=== PATIENT | male | born 1995 | race Caucasian/White ===

== ENCOUNTER 2018-09-11 14:22 | Emergency (ER) | payer OTHER ==
[~2018-09-11] VITALS: Ht 177.8 cm; Wt 107.1 kg
[2018-09-11 14:32] VITALS: BP 162/100; PULSE 110; RESP 18; Ht 177.8 cm; Wt 107.1 kg
[2018-09-11] MEDS ORDERED: LORA10TA3 PO (17:47)
[2018-09-11] MEDS ORDERED: FAMO-96 PO (17:47)
[2018-09-11] MEDS ORDERED: PRED20TA PO (17:47)
[2018-09-11] MEDS ORDERED: BEN25 PO (17:47)
[2018-09-11] MEDS ORDERED: DIPHENHYDRAMINE 25 MG CAP PO ONE (18:00)
--- NOTE | 2018-09-11 18:10 | ERD ---
ER Documentation Chief Complaint Chief Complaint allergic reaction, hives today HPI 23-year-old healthy male with no reported past medical surgical history who presents with complaint of hives since today. Patient states he noticed hives to bilateral upper and lower extremities worsened to bilateral upper extremities since last night. He denies prior history of similar allergic type reaction. Denies history of atopy. Denies using any new skin products, working outdoors or being exposed to any plants or animals, use of [id number] medications or prescription medications. States last night he had an episode of difficulty swallowing, but has had no other respiratory type symptoms since then denying shortness of breath, dyspnea, difficulty swallowing, change in voice. Hives to upper extremities and lower extremities have improved since that time but still quite prominent. At time examination patient is nontoxic-appearing speaking in full sentences with normal triage vital signs. ROS All systems reviewed and are negative except as per history of present illness. Medications Home Meds Active Scripts Famotidine* (Pepcid*) 20 Mg Tablet, 20 MG PO BID for 4 Days, TAB Prov:JEUDINE,BARBARAHO PA-C 09/11/18 Prednisone* (Prednisone*) 20 Mg Tab, 20 MG PO DAILY for 3 Days, TAB Prov:JEUDINE,GETHO PA-C 09/11/18 Loratadine* (Loratadine*) 10 Mg Tablet, 10 MG PO DAILY, #30 TAB Prov:JEUDINE,GETHO PA-C 09/11/18 Diphenhydramine Hcl* (Benadryl*) 25 Mg Cap, 25 MG PO Q6, #14 CAP Prov:JEUDINE,GETHO PA-C 09/11/18 Allergies Allergies: Coded Allergies: No Known Allergy (Unverified , 09/11/18) PMhx/Soc Medical and Surgical Hx: pt denies Medical Hx, pt denies Surgical Hx History of Surgery: No Anesthesia Reaction: No Hx Neurological Disorder: No Hx Respiratory Disorders: No Hx Cardiac Disorders: No Hx Psychiatric Problems: No Hx Miscellaneous Medical Probl: No Hx Alcohol Use: No Hx Substance Use: No Hx Tobacco Use: No Smoking Status: Never smoker FmHx Family History: No diabetes, No coronary disease, No other Physical Exam Vitals Vital Signs Date Temp Pulse Resp B/P (MAP) Pulse Ox O2 O2 Flow FiO2 Time Delivery Rate 09/11/18 97.8 110 18 162/100 97 14:32 (120) Physical Exam Const: No acute distress, speaking in full sentences Head: Atraumatic Eyes: Normal Conjunctiva ENT: Normal External Ears, Nose and Mouth. Neck: Full range of motion. No meningismus. Resp: Clear to auscultation bilaterally Cardio: Regular rate and rhythm, no murmurs Abd: Soft, non tender, non distended. Normal bowel sounds Skin: Upper extremities with prominent hives bilaterally, most prominent dorsal soft surface of her forearms, no rashes noted to palms or soles, bilateral extremities with hives less prominent than upper extremity Back: No midline or flank tenderness Ext: No cyanosis, or edema Neur: Awake and alert Psych: Normal Mood and Affect Results 24 hrs Current Medications Medications Dose Sig/Josette Start Time Status Last (Trade) Ordered Route PRN Stop Time Admin Dose Reason Admin 25 mg ONCE ONCE 09/11/18 DC Diphenhydrami PO 18:00 ne HCl 09/11/18 18:00 (Benadryl) Procedures/MDM 23-year-old healthy male presents with skin type allergic reaction. I have low suspicion for respiratory compromise given reassuring examination. Patient's symptoms could represent contact dermatitis and/or allergic reaction to unknown substance or exposure to unknown allergen. He is hemodynamically stable without any warning signs of airway or systemic compromise. Presentation not consistent with acute anaphylaxis (lack of pulmonary, dermatologic, cardiovascular or GI symptoms, lack of hypotension or exposure to known allergen), angioedema, serum sickness (no recent drug exposure, lacks fevers, arthralgias), ingestion of preformed toxin. No evidence of airway compromise or shock at this time. Patient's allergic symptoms have stabilized while they have been evaluated in the department without evidence of persistent systemic reaction. Patient is healthy and capable of treating and responding to rebound reactions. Patient appropriate for outpatient allergy work up and treatment. Will discharge with Benadryl, H2 sherie, short course of steroids. Strict return precautions explained in detail. DISPOSITION PLAN: We discussed follow up with the patient's primary care doctor within 24 to 48 hours. Patient counseled regarding my diagnostic impression and care plan. Prior to discharge all questions answered. Pt agrees with treatment plan and understands strict return precautions. Precautionary instructions provided including instructions to return to the ER if not improving or for any worsening or changing symptoms or concerns. Disclaimer: Inadvertent spelling and grammatical errors are likely due to EHR/dictation software use and do not reflect on the overall quality of patient care. Also, please note that the electronic time recorded on this note does not necessarily reflect the actual time of the patient encounter. Departure Diagnosis: Primary Impression: Allergic reaction Additional Impression: Contact dermatitis Condition: Stable Patient Instructions: First Aid: Allergic Reactions, Allergic Reaction, Other (General), Contact Dermatitis Referrals: [facility] YOU HAVE RECEIVED A MEDICAL SCREENING EXAM AND THE RESULTS INDICATE THAT YOU DO NOT HAVE A CONDITION THAT REQUIRES URGENT TREATMENT IN THE EMERGENCY DEPARTMENT. FURTHER EVALUATION AND TREATMENT OF YOUR CONDITION CAN WAIT UNTIL YOU ARE SEEN IN YOUR DOCTORS OFFICE WITHIN THE NEXT 1-2 DAYS. IT IS YOUR RESPONSIBILITY TO MAKE AN APPOINTMENT FOR FOLOW-UP CARE. IF YOU HAVE A PRIMARY DOCTOR --you should call your primary doctor and schedule an appointment IF YOU DO NOT HAVE A PRIMARY DOCTOR YOU CAN CALL OUR PHYSICIAN REFERRAL HOTLINE AT IF YOU CAN NOT AFFORD TO SEE A PHYSICIAN YOU CAN CHOSE FROM THE FOLLOWING [facility] [address] [facility] [address] [facility] [facility] [place] [address] [facility] [address] [facility] [address]. [facility]. [address] Additional Instructions: Call your primary care doctor TOMORROW for an appointment during the next 2-3 days.See the doctor sooner or return here if your condition worsens before your appointment time. ALBERT WHITAKER PA-C September 11, 2018 18:10
== END 2018-09-11 17:57 | disposition home or self-care (01) ==
LOC: FTE 14:22
DX: L50.0 Allergic urticaria (principal); L25.9 Unspecified contact dermatitis, unspecified cause
CPT/HCPCS: 99283